=== PATIENT | female | born 1970 | race Caucasian/White ===

== ENCOUNTER 2016-12-20 15:16 | Emergency (ER) | payer MEDICARE ==
[~2016-12-20] VITALS: Ht 157.5 cm; Wt 99.8 kg
--- NOTE | ~2016-12-20 | CR126 ---
[facility] A Service of [facility] RADIOLOGY TEXT RESULTS PATIENT: SIRENA REDDY LOCATION: [facility] : 68 UNIT #: [id number] AGE: [address]: Cherry Nixon APRN SEX: F ORDER DR: [id number] [facility] [address] [place], [place] [address] [id number] E MR#: [id number] Acc #: [id number] NAME: SIRENA REDDY : 1970 SEX: F STUDY DATE/TIME: 12/20/2016 15:48 UNIT: [facility] ROOM: STUDY DESCRIPTION: CR Foot Complete Min 3 View Lt Attending Physician: Cherry Nixon A.P.R.N. Referring Physician: Justo Matos M.D. Ordering Physician: Ed Brian Sherman M.D. MEDICAL IMAGING REPORT This report is preliminary unless electronic signature is present EXAM Left foot series, 12/20/2016. HISTORY Pain, redness, swelling. No known trauma. Began 2 days ago. Hot to touch. Pain/numbness. FINDINGS AP, lateral and oblique radiographs of the left foot show no traumatic fracture or malalignment. Generalized narrowing of the interphalangeal joint spaces. No soft tissue defect, subcutaneous air or radiodense foreign body. Well corticated calcification adjacent to the inferior tip of the lateral malleolus favored to be chronic soft tissue calcification. Dictated by... Marcos Berger M.D. THIS IS AN ELECTRONICALLY VERIFIED REPORT Marcos Berger M.D. at 12/23/2016 12:58 PM MELISSA/debra TD: 12/21/2016 16:45 JOB #: [id number] MEDICAL IMAGING REPORT Page 1 of 1 COPY
[~2016-12-20 15:16] MED LIST: ASPIRIN81 M2 PO; BENZONATATE PO; BUTALB-APAP-CA1 EACH PO; DESYREL100 MG PO; ELIMITE60 GM TOP; FLONASE16 GM; NEURONTIN PO; NEURONTIN600 MG PO; OMEPRAZOLE40 MG PO; PAXIL PO; PREDNISONE50 MG PO; PROPANOLOL PO; REGLAN PO; SARAFEM20 M1 PO; SYNTHROID0.05 MG PO
== END 2016-12-20 17:12 | disposition home or self-care (01) ==
LOC: CED 15:16 → CFTX 15:16
DX: L03.116 Cellulitis of left lower limb (principal); F17.210 Nicotine dependence, cigarettes, uncomplicated; Z98.890 Other specified postprocedural states; Z90.49 Acquired absence of other specified parts of digestive tract; Z88.8 Allergy status to other drugs, medicaments and biological substances; Z88.1 Allergy status to other antibiotic agents
CPT/HCPCS: 73630; 99283

== ENCOUNTER 2016-12-22 12:39 | Emergency (ER) | payer MEDICARE ==
--- NOTE | ~2016-12-22 | CR63 ---
[facility] A Service of [facility] RADIOLOGY TEXT RESULTS PATIENT: SIRENA REDDY LOCATION: [facility] : 68 UNIT #: [id number] AGE: [address]: Shreya Rose SEX: F ORDER DR: [id number] [facility] [address] [place], [place] [address] [id number] E MR#: [id number] Acc #: [id number] NAME: SIRENA REDDY : 1970 SEX: F STUDY DATE/TIME: 12/22/2016 14:57 UNIT: [facility] ROOM: STUDY DESCRIPTION: CR Chest 2 View Attending Physician: Shreya Rose P.A.-C. Ordering Physician: Shreya Rose P.A.-C. Primary Care Physician: Generic Doctor Not In System MEDICAL IMAGING REPORT This report is preliminary unless electronic signature is present EXAM Chest 2 views dated 12/22/2016 COMPARISON Single view chest dated 04/04/2011 HISTORY Shortness of air today. Patient's states she was bitten by something. FINDINGS Two views of the chest were obtained. PA and lateral examination of the chest upright shows a good expansion of the parenchyma with a normal distribution of the pulmonary vascularity. There is no indication of congestion, effusion, infiltrate, tumor, or nodular density. The pleural reflections and diaphragmatic contours are normal. The cardiac silhouette and mediastinal anatomy is within normal limits. Status post anterior cervical fusion. IMPRESSION Normal chest. Dictated by... Genaro Park M.D. THIS IS AN ELECTRONICALLY VERIFIED REPORT Genaro Park M.D. at 12/25/2016 9:14 AM CPR/zeyad TD: 12/23/2016 08:12 JOB #: [id number] MEDICAL IMAGING REPORT [facility] A Service of [facility] RADIOLOGY TEXT RESULTS PATIENT: SIRENA REDDY LOCATION: [facility] : 68 UNIT #: [id number] AGE: [address]: Shreya Rose SEX: F ORDER DR: Page 1 of 1 COPY
[2016-12-22 14:06] LABS: BASOPHIL# 0.1 X10e3 (0-0.3); BASOPHIL% 1.1 % (0-2.5); EOSINOPHIL# 0.1 X10e3 (0-0.7); EOSINOPHIL% 1.9 % (0.0-7.0); HEMATOCRIT 42.6 % (35.0-45.0); HEMOGLOBIN 14.5 gm/dL (12.0-16.0); LYMPHOCYTE# 2.8 X10e3 (1.0-3.5); LYMPHOCYTE% 36.6 % (17.0-45.0); MEAN CELL VOLUME 90.8 FL (83-96); MEAN CORPUSCULAR HGB CONC 34.1 g/dL (30-36); MEAN PLATELET VOLUME 8.9 FL (6.5-11.5); MONOCYTE# 0.6 X10e3 (0-1.0); MONOCYTE% 8.1 % (3.0-12.0); NEUTROPHIL% 52.3 % (40-75); PLATELET COUNT 236 X10e3 (140-420); RED BLOOD COUNT 4.69 X10e (3.90-5.30); RED CELL DISTRIBUTION WIDTH 14.8 % (11.0-15.5); WHITE BLOOD COUNT 7.7 X10e3 (4.0-10.5)
[2016-12-22 14:08] LABS: DIFF IND NO
[2016-12-22 14:18] LABS: ALBUMIN SERUM 4.4 g/dL (3.5-5.0); ALKALINE PHOSPHATASE 103 U/L (32-92); ALT (SGPT) 19 U/L (10-40); AST (SGOT) 21 U/L (10-42); BILIRUBIN,TOTAL 0.5 mg/dL (0.2-2.0); BLOOD UREA NITROGEN 17 mg/dL (9-23); CALCIUM SERUM 9.5 mg/dL (8.4-10.2); CARBON DIOXIDE 26 mmol/L (22-31); CHLORIDE 107 mmol/L (100-111); GLOM FILT RATE Estimated 67.1 mL/min (>60); GLUCOSE FASTING 109 mg/dL (70-110); POTASSIUM 3.6 mmol/L (3.5-5.1); PROTEIN TOTAL SERUM 7.9 g/dL (6.0-8.3); SODIUM 142 mmol/L (135-145)
[2016-12-22 14:20] LABS: BILIRUBIN, DIRECT <0.1 mg/dL (0.0-0.2); BILIRUBIN,INDIRECT 0.4 mg/dL (0.0-0.9)
== END 2016-12-22 16:26 | disposition home or self-care (01) ==
LOC: CED 12:39 → CFTX 12:39
PROVIDERS: Physician Assistant
DX: N61.0 Mastitis without abscess (principal); M77.9 Enthesopathy, unspecified; K21.9 Gastro-esophageal reflux disease without esophagitis; F17.210 Nicotine dependence, cigarettes, uncomplicated; E05.90 Thyrotoxicosis, unspecified without thyrotoxic crisis or storm; Z88.2 Allergy status to sulfonamides
CPT/HCPCS: 36415; 71020; 80048; 80076; 83605; 85025; 86140; 87040; 96365; 96366; 96375; 99285; J1885; J3370